=== PATIENT | male | born 1975 | race African-American/Black ===

== ENCOUNTER 2019-02-14 19:50 | Emergency (ER) | payer SELFPAY ==
[~2019-02-14] VITALS: Ht 185.4 cm; Wt 90.3 kg
--- NOTE | 2019-02-14 20:05 | NUR ---
PT BIBS. C/O "WALKED FROM [facility] TO [facility] HOUSE. HAVING R ANKLE AND R TOE PAIN/BLISTER" AOX4. AMBULATORY. VSS. - BLEEDING, WILL CONTINUE TO MONITOR
--- NOTE | 2019-02-14 20:27 | NUR ---
EMT AT BEDSIDE FOR WOUND CARE
--- NOTE | 2019-02-14 20:37 | NUR ---
Patient discharged to home in stable condition. Written and verbal after care instructions given. Patient verbalizes understanding of instruction.
[2019-02-14 20:38] VITALS: BP 127/82
== END 2019-02-14 20:39 | disposition home or self-care (01) ==
LOC: ER 19:58
DX: S91.101A Unspecified open wound of right great toe without damage to nail, initial encounter (principal); I10 Essential (primary) hypertension; E10.40 Type 1 diabetes mellitus with diabetic neuropathy, unspecified; Z76.0 Encounter for issue of repeat prescription; X58.XXXA Exposure to other specified factors, initial encounter; Y93.89 Activity, other specified; Y92.89 Other specified places as the place of occurrence of the external cause; Y99.8 Other external cause status

== ENCOUNTER 2019-11-06 22:52 | Emergency (ER) | payer MEDICAID, OTHER ==
[~2019-11-06] VITALS: Ht 180.3 cm; Wt 106.6 kg
--- NOTE | 2019-11-06 23:01 | NUR ---
called pt in wr. no one in wr at this time. will follow up
[2019-11-06 23:16] VITALS: BP 165/100
== END 2019-11-06 23:44 | disposition home or self-care (01) ==
LOC: ER 22:55
DX: S91.301A Unspecified open wound, right foot, initial encounter (principal); E11.40 Type 2 diabetes mellitus with diabetic neuropathy, unspecified; I10 Essential (primary) hypertension; X58.XXXA Exposure to other specified factors, initial encounter; Y93.89 Activity, other specified; Y92.89 Other specified places as the place of occurrence of the external cause; Y99.8 Other external cause status